=== PATIENT | male | born 1955 | race Caucasian/White ===

== ENCOUNTER 2021-01-05 19:59 | Emergency (ER) | payer MEDICARE, OTHER ==
[2021-01-05 20:08] VITALS: RESP 18; TEMP 98.4
[2021-01-05] MEDS ORDERED: SULFAMETH-TMP DS STARTER PACK 2 TAB BTL PO STA (20:33)
[2021-01-05] MEDS ORDERED: KETOROLAC 15 MG/ML 1 ML VIAL IM STA (20:33)
[2021-01-05] MEDS ORDERED: LIDOCAINE 1% INJ 10MG/ML (20 ML MDV) SQ ONE (20:33)
--- NOTE | 2021-01-05 21:16 | ED ---
Skin/Abscess/FB HPI - General Chief complaint: Skin/Abscess/Foreign Body Stated complaint: cyst in armpit Time Seen by Provider: 01/05/21 20:10 Source: patient Mode of arrival: ambulatory Limitations: no limitations - History of Present Illness Initial comments: 65-year-old male patient presents to the emergency department today for evaluation of abscess to the right armpit. Patient states that the area has been a small pimple for the last several years. States over the last 3 days and is grown quite large and painful. Denies any drainage from the area. States he has been applying warm compresses without relief. Denies any fever or chills. Denies nausea or vomiting. States he did have an abscess to his right arm in the past that was drained. Denies any history of diabetes any other immunosuppressive conditions. - Related Data Home Medications Medication Instructions Recorded Confirmed Aspirin EC [Ecotrin] 81 mg PO HS 10/21/15 10/21/15 Simvastatin [Zocor] 20 mg PO HS 10/21/15 10/21/15 lisinopriL [Zestril] 10 mg PO HS 10/21/15 10/21/15 Previous Rx's Medication Instructions Recorded HYDROcodone/APAP 5-325MG [[place] 5] 1 each PO Q4HR PRN #20 tab 10/21/15 Naproxen [Naprosyn] 500 mg PO Q12HR #24 tab 10/21/15 Ibuprofen [Motrin] 600 mg PO Q8HR PRN #30 tab 01/05/21 Sulfamethoxazole/Trimethoprim 1 each PO BID #20 tablet 01/05/21 [Bactrim DS 800-160 mg] Allergies Allergy/AdvReac Type Severity Reaction Status Date / Time ciprofloxacin [From Cipro] Allergy CHEST Verified 01/05/21 20:06 PAIN, MOUTH SWELLING ciprofloxacin HCl Allergy CHEST Verified 01/05/21 20:06 [From Cipro] PAIN, MOUTH SWELLING Review of Systems ROS Statement: Those systems with pertinent positive or pertinent negative responses have been documented in the HPI. ROS Other: All systems not noted in ROS Statement are negative. Past Medical History Past Medical History: Hyperlipidemia, Hypertension History of Any Multi-Drug Resistant Organisms: None Reported Past Surgical History: Ear Surgery, Hernia Repair Past Psychological History: No Psychological Hx Reported Smoking Status: Never smoker Past Alcohol Use History: None Reported Past Drug Use History: None Reported General Exam Limitations: no limitations General appearance: alert, in no apparent distress, other (This is a well- developed, well-nourished adult male patient in no acute distress. Vital signs upon presentation are temperature 98.4F, pulse 94, respirations 18, blood pressure 173/99, pulse ox 96% on room air.) Respiratory exam: Present: normal lung sounds bilaterally. Absent: respiratory distress, wheezes, rales, rhonchi, stridor Cardiovascular Exam: Present: regular rate, normal rhythm, normal heart sounds. Absent: systolic murmur, diastolic murmur, rubs, gallop, clicks Extremities exam: Present: full ROM, normal capillary refill, other (There is large abscess noted to the right axilla. 4 cm x 4 cm and significantly swollen. There is mild overlying erythema. Area is fluctuant.). Absent: normal inspection, tenderness, pedal edema, joint swelling, calf tenderness Neurological exam: Present: alert, oriented X3, CN II-XII intact Psychiatric exam: Present: normal affect, normal mood Skin exam: Present: warm, dry, intact, normal color. Absent: rash Course Vital Signs 01/05/21 01/05/21 20:06 21:20 Temperature 98.4 F Pulse Rate 94 82 Respiratory 18 18 Rate Blood Pressure 173/99 142/83 O2 Sat by Pulse 96 98 Oximetry Procedures - Incision & Drainage Consent Obtained: verbal consent Indication: Abscess Site: other (Right axilla) Size (cm): 4 Anesthetic Used: lidocaine 1% Amount (mLs): 6 I&D Cleaning Method: Betadine Scalpel Used: #11 I&D Drainage Obtained: Pus, Blood Culture Obtained?: Yes Patient Tolerated Procedure: well, no complications Medical Decision Making - Medical Decision Making 65-year-old male patient presented to the emergency department today for evaluation of abscess to the right axilla. Physical examination did reveal large abscess with fluctuance with minimal surrounding erythema. He is afebrile, vital signs. Did perform incision and drainage of the abscess. He was started on Bactrim. Culture was sent. He'll be discharged follow-up with his primary care physician and to discuss referral to general surgery. Return parameters were discussed in detail. He verbalizes understanding and agrees with this plan. My attending is Dr. Clay. Disposition Clinical Impression: Abscess of right axilla Disposition: HOME SELF-CARE Condition: Good Instructions (If sedation given, give patient instructions): Abscess Incision and Drainage (ED), Abscess (ED) Additional Instructions: Warm compresses to the right axilla. Follow up with your primary care physician for recheck in 1-2 days. Follow-up with general surgery for further evaluation and possible excision. Complete antibiotic prescription in full. Return to the emergency department for any new, worsening, or concerning symptoms. Prescriptions: Sulfamethoxazole/Trimethoprim [Bactrim DS 800-160 mg] 1 each PO BID #20 tablet Ibuprofen [Motrin] 600 mg PO Q8HR PRN #30 tab PRN Reason: Pain Is patient prescribed a controlled substance at d/c from ED?: No Referrals: Carlitos De Oliveira MD [Primary Care Provider] - 1-2 days Time of Disposition: 21:16
[2021-01-05 21:24] VITALS: BP 142/83; PULSE 82
== END 2021-01-05 21:20 | disposition home or self-care (01) ==
LOC: EC 19:59
DX: L02.411 Cutaneous abscess of right axilla (principal); E78.5 Hyperlipidemia, unspecified; I10 Essential (primary) hypertension; Z79.82 Long term (current) use of aspirin
CPT/HCPCS: 99283; 96372; 10060; 87070; 87205; J2001; J1885